=== PATIENT | female | born 1995 | race Caucasian/White ===

== ENCOUNTER 2021-01-20 18:18 | Emergency (ER) | payer BC ==
[2021-01-20] MEDS ORDERED: Tetracaine HCl/PF 0.5% 4 ML Bottle EYEBOTH ONE (18:45)
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
== END 2021-01-20 20:37 | disposition home or self-care (01) ==
LOC: MW.ED 18:18
DX: S05.02XA Injury of conjunctiva and corneal abrasion without foreign body, left eye, initial encounter (principal); W22.8XXA Striking against or struck by other objects, initial encounter
CPT/HCPCS: 70486; 70486-26; 99283; 99283-25

== ENCOUNTER 2021-08-23 23:02 | Emergency (ER) | payer BC ==
[2021-08-23] MEDS ORDERED: Ondansetron 4 MG Tab.DIS PO ONE (23:22)
[2021-08-24 01:00] LABS: CORONAVIRUS COVID-19 NAA NEGATIVE (NEGATIVE); INFLUENZA A NAA NEGATIVE (NEGATIVE); INFLUENZA B NAA NEGATIVE (NEGATIVE)
== END 2021-08-23 23:55 | disposition home or self-care (01) ==
LOC: MW.ED 23:02
DX: J06.9 Acute upper respiratory infection, unspecified (principal); Z20.822 Contact with and (suspected) exposure to COVID-19
CPT/HCPCS: 0240U; 99283; A9270